=== PATIENT | female | born 1990 | race Caucasian/White ===

== ENCOUNTER 2016-09-20 17:03 | Emergency (ER) | payer BC ==
[2016-09-20 20:01] LABS: BASOPHILS 0.2 % (0-2); HEMATOCRIT 42.4 % (36.0-48.0); HEMOGLOBIN 14.3 g/dL (12-16); IMMATURE GRANULOCYTES 0.2 % (0-5); LYMPHOCYTES 19.3 % (15-50); MCH 31.5 pg (26.0-34.0); MCHC 33.7 g/dL (31.0-37.0); MCV 93.4 fL (80.0-100.0); MEAN PLATELET VOLUME 11.1 fL (7.4-10.4); NEUTROPHILS 71.3 % (40-80); PLATELET COUNT 287 10x3/uL (130-400); RBC 4.54 10x6/uL (4.00-5.40); RDW 13.1 % (11.5-14.5); WBC 13.3 10x3/uL (4.8-10.8)
[2016-09-20 20:08] LABS: HCG SERUM POSITIVE (NEGATIVE)
[2016-09-20 20:19] LABS: APPEARANCE CLOUDY (CLEAR); BILIRUBIN NEGATIVE (NEGATIVE); COLOR YELLOW (YELLOW); GLUCOSE NEGATIVE (NEGATIVE); KETONE NEGATIVE (NEGATIVE); LEUKOCYTE ESTERASE NEGATIVE (NEGATIVE); NITRITE NEGATIVE (NEGATIVE); PROTEIN TRACE mg/dL (NEGATIVE); UROBILINOGEN NORMAL (NORMAL)
[2016-09-20 20:21] LABS: BACTERIA MODERATE /hpf (NONE SEEN); RED CELLS - URINE 0-5 /hpf (0-5)
[2016-09-20 20:26] LABS: ALBUMIN 3.9 g/dL (3.4-5.0); ALKALINE PHOSPHATASE 60 U/L (46-116); ALT (SGPT) 25 U/L (10-68); BILIRUBIN - TOTAL 0.31 mg/dL (0.2-1.3); CALC OSMOLALITY 278 mosm/kg (275-300); CALCIUM 9.5 mg/dL (8.5-10.1); CHLORIDE - SERUM 104 mmol/L (98-107); CREATININE - SERUM 0.9 mg/dL (0.6-1.3); GLUCOSE 102 mg/dL (74-106); POTASSIUM - SERUM 4.1 mmol/L (3.5-5.1); PROTEIN - SERUM 7.2 g/dL (6.4-8.2); SODIUM 140 mmol/L (136-145); UREA NITROGEN 12 mg/dL (7-18); eGFR NON AFRICAN AMERICAN 79 mL/min (90-120)
== END 2016-09-20 22:55 | disposition home or self-care (01) ==
LOC: D.ER 17:03
PROVIDERS: Emergency Medicine
DX: R10.9 Unspecified abdominal pain (principal); R10.32 Left lower quadrant pain; N93.9 Abnormal uterine and vaginal bleeding, unspecified

== ENCOUNTER 2016-10-02 10:46 | Inpatient (IN) | payer MEDICAID ==
[~2016-10-02] VITALS: Ht 182.9 cm; Wt 113.4 kg
[2016-10-02] VITALS (9 sets, daily range): BP systolic 123–155; BP diastolic 78–90; BMI 34.0
[2016-10-02 11:36] LABS: BASOPHILS 0.3 % (0-2); EOSINOPHILS 5.5 % (0-7); HEMATOCRIT 38.8 % (36.0-48.0); IMMATURE GRANULOCYTES 0.1 % (0-5); LYMPHOCYTES 20.9 % (15-50); MCH 31.1 pg (26.0-34.0); MCHC 33.5 g/dL (31.0-37.0); MCV 92.8 fL (80.0-100.0); MEAN PLATELET VOLUME 10.9 fL (7.4-10.4); MONOCYTES 5.7 % (2-11); NEUTROPHILS 67.5 % (40-80); PLATELET COUNT 263 10x3/uL (130-400); RBC 4.18 10x6/uL (4.00-5.40); RDW 13.5 % (11.5-14.5); WBC 7.8 10x3/uL (4.8-10.8)
[2016-10-02 11:49] LABS: HCG SERUM POSITIVE (NEGATIVE)
--- NOTE | 2016-10-02 15:55 | NUR ---
RECEIVED WELL NOURISHED WHITE FEMALE ADULT PATIENT COMPLAINING OF VAGINAL BLEEDING X 6 WEEKS. REPORTS SHE SATURATES 1 PAD PER HOUR FOR LAST 6 WEEKS BUT MORE TODAY. ALERT AND ORIENTED X 4. SKIN WARM DRY AND PINK. BBS = AND CTA. STATES SHE SMOKES 1/2 PKG CIGARETTES DAILY FOR LAST 14 YEARS. ABD SOFT; BOWEL SOUNDS FAINT. STATES SHE HAS BEEN DRINKING ONLY WATER TODAY; LAST WAS A SIP AT 1530 STATED BY PATIENT AND HER MOTHER; NOTIFIED OF SAME. MARIAN. IV 20G ANGIOCATH RIGHT AC INTACT WITH NO SIGNS OF COMPLICATIONS. MOTHER AND BOYFRIEND AT BEDSIDE.
--- NOTE | 2016-10-02 16:00 | NUR ---
DR JIMENEZ ON UNIT. ORDERS RECEIVED.
--- NOTE | 2016-10-02 16:05 | NUR ---
OPERATIVE PERMITS ALREADY SIGNED BY PATIENT IN E.R.
--- NOTE | 2016-10-02 18:00 | NUR ---
LR 1000ML STARTED RIGHT AC WITH NO SIGNS OF COMPLICATIONS AT IV SITE.
--- NOTE | 2016-10-02 18:25 | NUR ---
REMAINS STABLE. TO O.R. PER BED.
--- NOTE | 2016-10-02 20:57 | NUR ---
RECEIVED PT VIA BED FROM POST OPEN LAPAROTOMY PER DR JIMENEZ, PT TO ROOM 1222, VS INITIATED, IV IN RIGHT AC INTACT WITH NO REDNESS OR EDEMA, LR TO PUMP INFUSING AT 125 ML/HR, Baby [employer]end[employer] INC WITH PRIMAPORE DRESSING CDI WITH DRAINAGE NOTED, ICE PACK PLACED, NO VAG BLEEDING NOTED AT THIS TIME, HENRY CATH DRAINING DARK YELLOW URINE, PT ORIENTED TO ROOM, BED IN LOW POSITION, SIDE RAILS X 2, CALL LIGHT IN REACH
--- NOTE | 2016-10-02 21:20 | NUR ---
DILAUDID GAMMA RAY OPERATOR INITIATED, PT INST ON AND VERBALIZES UNDERSTANDING, PT PUSHES BUTTON AT THIS TIME, FAMILY INST TO NOT PUSH BUTTON FOR PT, SCD'S APPLIED AND WORKING PROPERLY, ICE CHIPS PROVIDED
--- NOTE | 2016-10-02 21:45 | NUR ---
PT C/O NAUSEA, ADM ZOFRAN SIVP PER MD ORDERS, SEE EMAR
--- NOTE | 2016-10-02 21:54 | NUR ---
NEW BAG OF LR HUNG INFUSING VIA PUMP AT 125 ML/HR, FAMILY AT BEDSIDE
--- NOTE | 2016-10-02 22:15 | NUR ---
PT RESTING WITH EYES CLOSED, RESP QUIET, NO DISTRESS NOTED, LEFT UNDISTURBED AT THIS TIME, BEDDING PROVIDED TO PTS MOM
--- NOTE | 2016-10-02 22:15 | NUR ---
BEDDING PROVIDED TO FEMALE FAMILY MEMBER
--- NOTE | 2016-10-02 22:38 | NUR ---
IV BEEPING, PT AWAKE, REPORTS BEING COLD, TEMP 97.7, AIR ADJ, WARM BLANKET PROIVDED, PT DENIES FURTHER NEEDS, PT'S MOM AT BEDSIDE
--- NOTE | 2016-10-02 23:30 | NUR ---
S/O AT HOSPITAL INSURANCE REPRESENTATIVE, REQUESTS SOMETHING TO DRINK FOR PT, THIS RN TO ROOM, PT REQUESTED AND SERVED COLA, VS FINISHED, PINK PAD AND BLUE CHUX CHANGED DUE TO IT BEING BUNCHED UP UNDER PT, NO VAG BLEEDING NOTED AT THIS TIME, GIOVANNY PAD PLACED ON, HENRY CATH EMPTIED, PT DENIES NAUSEA, SCD'S CONTINUE ON AND WORKING PROPERLY, PT DENIES FURTHER NEEDS
--- NOTE | 2016-10-03 00:15 | NUR ---
IV BEEPING, PEDRO THOMAS, RN, CASKET INSPECTOR TO ROOM, THIS RN RIGHT BEHIND HER, IV POSITIONAL, PT STRAIGHTENED OUT ARM, IV INFUSING WITH NO DIFFICULTY, PT DENIES FURTHER NEEDS, S/O AT BEDSIDE
--- NOTE | 2016-10-03 00:28 | NUR ---
FOB AT HOME CARE CONSULTANT, REPORTS PT IS A LITTLE HUNGRY, THIS RN TO ROOM, CL OFFERED TO PT, PT OPTED AND SERVED ORANGE POPSICLE, DENIES FURTHER NEEDS
--- NOTE | 2016-10-03 01:00 | NUR ---
FOB AT GAS PLANT SPECIALIST, REPORTS THAT PT HAD FALLEN ASLEEP AND DROPPED HER POPSICLE ON HER GOWN, THIS RN TO ROOM, GOWN CHANGED, PT DENIES FURTHER NEEDS
--- NOTE | 2016-10-03 02:01 | NUR ---
PT RESTING WITH EYES CLOSED, RESP QUIET, NO DISTRESS NOTED, LEFT UNDISTURBED AT THIS TIME, S/O AT BEDSIDE
--- NOTE | 2016-10-03 03:40 | NUR ---
PT RINGS CL. THIS RN TO BEDSIDE. RESTARTED IV PUMP DUE TO IT ALARMING "OCCLUDED." PT ALSO QUESTIONS ABOUT PIV PLACEMENT IN LT HAND STATING "IT FEELS LIKE IT'S NOT IN ANYMORE." ASSESSED SITE, IV NOTED TO BE OUT OF HAND AND HANGING BY THE TAPE. DRIED BLOOD NOTED AROUND SITE, BUT NO ACTIVE BLEEDING. TAPED OFF HAND. PIV TO RT AC PATENT. PT DENIES FURTHER NEEDS.
[2016-10-03 03:43] VITALS: BP 114/72
--- NOTE | 2016-10-03 03:43 | NUR ---
IV PUMP ALARMING. RN TO BEDSIDE. V/S ASSESSED AT THIS TIME. PUMP CLEARED. PT DENIES FURTHER NEEDS AT THIS TIME.
--- NOTE | 2016-10-03 05:00 | NUR ---
PT AWAKE, PUMPS CLEARED, HENRY CATH EMPTIED, FRESH ICE PACK TO ABD, GIOVANNY PAD CHANGED, SCANT VAG BLEEDING NOTED WITH NO CLOTS, PT DENIES FURTHER NEEDS OR PAIN, S/O AT BEDSIDE
[2016-10-03 05:24] LABS: BASOPHILS 0.2 % (0-2); EOSINOPHILS 0.3 % (0-7); HEMATOCRIT 35.4 % (36.0-48.0); HEMOGLOBIN 11.8 g/dL (12-16); IMMATURE GRANULOCYTES 0.2 % (0-5); LYMPHOCYTES 14.7 % (15-50); MCHC 33.3 g/dL (31.0-37.0); MCV 92.9 fL (80.0-100.0); MEAN PLATELET VOLUME 10.6 fL (7.4-10.4); MONOCYTES 6.1 % (2-11); NEUTROPHILS 78.5 % (40-80); PLATELET COUNT 246 10x3/uL (130-400); RBC 3.81 10x6/uL (4.00-5.40); RDW 13.5 % (11.5-14.5)
[2016-10-03 05:33] LABS: WBC 12.3 10x3/uL (4.8-10.8)
--- NOTE | 2016-10-03 05:50 | NUR ---
PT AWAKE, NEW BAG OF LR HUNG IV INFUSING VIA PUMP AT 125 ML/HR, PT INST ON AND DEMONSTRATED INCENTIVE SPIROMETER, ADMITTING HISTORY AND MED REC COMPLETED, PT DENIES NEEDS AT THIS TIME
[2016-10-03] MEDS ORDERED: ACETAMINOPHEN325 MG PO (05:56)
--- NOTE | 2016-10-03 07:00 | NUR ---
SHIFT REPORT TO DAY SHIFT
--- NOTE | 2016-10-03 07:20 | NUR ---
DR JIMENEZ HERE TO SEE PT.
[2016-10-03 07:35] VITALS: BP 124/89
--- NOTE | 2016-10-03 07:38 | NUR ---
ASSESSMENT DONE. PT SITTING UP IN BED EATING REG DIET. FAMILY AT BEDSIDE. BIKINI LINE INCISION WITH BRITTNI- APPEARANCE WNL. LG BANDAIDE AT UMBILICUS. ICE CAP TO ABD.
--- NOTE | 2016-10-03 09:15 | NUR ---
toth cath d/karen post bulb deflated with 600cc urine in bag. iv changed to saline lock.
--- NOTE | 2016-10-03 09:20 | NUR ---
up to bathroom -states feels like might need to void. small amt blood in container- scant urine. donavan care done. tolerated well. pt states that her mom will help with her shower when she gets here.
--- NOTE | 2016-10-03 10:09 | NUR ---
Pt wanting Wheel Chair to get out of room. Wheel chair provided. Asked pt if she was just going around the hospital? "I might go out side" I asked to smoke and pt verblized yes. I instruced she could not go out and smoke, the pt asked why? I instruced the physician would discharge her home and that we are responsible for her while she is still a patient in the hospital. Pt up to wheel chair and attended by male visitor. Gown offered, but pt refused.
--- NOTE | 2016-10-03 10:15 | NUR ---
REQUESTING W/C FOR PT TO MOVE ABOUT HOSPITAL. W/C PROVIDED BY Tatiana ELAINE RN.
--- NOTE | 2016-10-03 10:40 | NUR ---
RINGS CALL LIGHT REQUESTING PAIN MED.
--- NOTE | 2016-10-03 12:11 | NUR ---
UP TO SHOWER- LINENS CHANGED. TOLERATED WELL. PT VOIDED 150CC IN CONTAINER. RATES PAIN A 4 AT THIS TIME. DENIES REQUESTS.
--- NOTE | 2016-10-03 13:05 | NUR ---
PT OUT OF ROOM AT THIS TIME.
[2016-10-03 13:10] VITALS: BP 129/79
[2016-10-03 14:17] VITALS: Ht 182.9 cm; Wt 113.4 kg
--- NOTE | 2016-10-03 15:52 | NUR ---
rings call light- requesting pain medication. co pain incisional area. rates pain a 6 on scale of 0-10. states just got up and voided "alot more than last time". pain med given.
[2016-10-03 17:00] VITALS: BP 133/76
--- NOTE | 2016-10-03 17:09 | NUR ---
AMBULATES BACK TO ROOM. DENIES NEEDS.
--- NOTE | 2016-10-03 19:05 | NUR ---
PT AMB BACK TO ROOM, GAIT STEADY, INFORMED PT THAT I WILL BE IN SHORTLY TO DO ASSESSMENT, PT VERBALIZES UNDERSTANDING, DENIES NEEDS AT THIS TIME, S/O AT SIDE
[2016-10-03 19:45] VITALS: BP 117/62
--- NOTE | 2016-10-03 19:45 | NUR ---
ASSESSMENT PER FLOW SHEET, VS OBTAINED, PT REPORTS SALINE LOCK IS REALLY SORE AND HURTING WHEN BENDING HER ARM, SALINE LOCK REMOVED, TIP INTACT, PRESSURE HELD, BANDAID APPLIED, BIKINI INC WITH BRITTNI CDI WITH NO DRAINAGE NOTED, GIOVANNY PAD OVER INC FOR COMFORT AND MOISTURE CONTROL, PT REPORTS LITE-MOD BLEEDING, PT UP TO BR, GAIT STEADY, VOIDED 250 MLS OF BLOOD TINGED URINE, EMPTIED FROM HAT, PT BACK TO BED, C/O INC BURNING, WILL ADM PAIN MED, S/O AT BEDSIDE
--- NOTE | 2016-10-03 19:59 | NUR ---
ADM NORCO PO PER MD ORDERS, SEE EMAR, PT DENIES FURTHER NEEDS, TRASH REMOVED
--- NOTE | 2016-10-03 20:20 | NUR ---
PT AMB IN PAIZ, GAIT STEADY, S/O AT SIDE
--- NOTE | 2016-10-03 21:19 | NUR ---
PT BACK IN ROOM, IN BED, VISITING WITH FAMILY, C/O RIGHT SHOULDER PAIN, REQUESTS SOMETHING FOR GAS, INFORMED PT THAT I WILL CONTACT DR JIMENEZ, PT VERBALIZES UNDERSTANDING
--- NOTE | 2016-10-03 21:21 | NUR ---
DR JIMENEZ NOTIFIED, REPORT OF PT'S RIGHT SHOULDER PAIN, INFORMED DR JIMENEZ OF VS, LITE-MOD BLEEDING, AND PASSING SMALL FLATUS, ORDERS FOR SIMETHICONE, CBC AND CMP IN AM
--- NOTE | 2016-10-03 21:32 | NUR ---
PT VISITING WITH FAMILY AND FRIENDS, ADM ORTEGA AND BEL PO PER MD ORDERS, INFORMED PT THAT I DID TALK TO DR JIMENEZ, AND THAT HE ORDERED THE SIMETHICONE AND LAB WORK FOR THE AM, PT VERBALIZES UNDERSTANDING, DENIES FURTHER NEEDS
--- NOTE | 2016-10-03 22:30 | NUR ---
PT VISITING WITH MOM, REPORTS "PAIN IS BETTER", PT DENIES NEEDS AT THIS TIME
--- NOTE | 2016-10-03 22:51 | NUR ---
PT AMB OFF UNIT, GAIT STEADY, MOM AT SIDE
--- NOTE | 2016-10-03 23:38 | NUR ---
PT BACK TO ROOM, NO NEEDS VOICED, S/O AT SIDE THIS TIME
[2016-10-04 00:03] VITALS: BP 117/55
--- NOTE | 2016-10-04 00:03 | NUR ---
PT LAYING IN BED, VS OBTAINED, ADM NORCO PO PER MD ORDERS, SEE EMAR, SCD'S PLACED ON AND WORKING PROPERLY, PT REQUESTED AND PROVIDED GIOVANNY PANTIES, SHEET PROVIDED TO S/O, PT DENIES FURTHER NEEDS
--- NOTE | 2016-10-04 01:00 | NUR ---
SHIFT REPORT TO FAITH ROSA RN
--- NOTE | 2016-10-04 01:26 | NUR ---
WENT IN TO REASSESS PTS PAIN AT THIS TIME. PT RESTING QUIETLY WITH EYES CLOSED. RESPIRATIONS EVEN, NON-LABORED. NO ACUTE DISTRESS NOTED AT THIS TIME. BED LOW. PHONE AND CALL LIGHT IN REACH. SRX2.
[2016-10-04 03:35] VITALS: BP 114/63
--- NOTE | 2016-10-04 03:35 | NUR ---
PT RESTING QUIETLY AT THIS TIME WITH EYES CLOSED. AROUSED EASILY. VSS. PT DENIES NEEDS AT THIS TIME. BED LOW. PHONE AND CALL LIGHT IN REACH. SRX2.
--- NOTE | 2016-10-04 04:25 | NUR ---
PT ON CL C/O PAIN OF 7/10 AT THIS TIME. ADMINISTERED NORCO AND MOTRIN PO PER ORDERS. PT DENIES OTHER NEEDS. BED LOW. PHONE AND CALL LIGHT IN REACH. SRX2.
--- NOTE | 2016-10-04 05:20 | NUR ---
REASSESSED PTS PAIN AT THIS TIME. PT RATES PAIN 2/10. DENIES NEEDS. BED LOW. PHONE AND CALL LIGHT IN REACH. SRX2.
--- NOTE | 2016-10-04 06:33 | NUR ---
PT RESTING QUIETLY AT THIS TIME. DENIES NEEDS. BED LOW. PHONE AND CALL LIGHT IN REACH. SRX2.
[2016-10-04 07:04] LABS: BASOPHILS 0.3 % (0-2); EOSINOPHILS 5.4 % (0-7); HEMATOCRIT 34.6 % (36.0-48.0); HEMOGLOBIN 11.4 g/dL (12-16); IMMATURE GRANULOCYTES 0.3 % (0-5); LYMPHOCYTES 27.8 % (15-50); MCH 30.9 pg (26.0-34.0); MCHC 32.9 g/dL (31.0-37.0); MCV 93.8 fL (80.0-100.0); MEAN PLATELET VOLUME 10.9 fL (7.4-10.4); MONOCYTES 9.1 % (2-11); NEUTROPHILS 57.1 % (40-80); PLATELET COUNT 246 10x3/uL (130-400); RBC 3.69 10x6/uL (4.00-5.40); RDW 13.4 % (11.5-14.5)
[2016-10-04 07:21] LABS: ALBUMIN 2.9 g/dL (3.4-5.0); ALKALINE PHOSPHATASE 49 U/L (46-116); ALT (SGPT) 22 U/L (10-68); CALC OSMOLALITY 280 mosm/kg (275-300); CALCIUM 8.4 mg/dL (8.5-10.1); CARBON DIOXIDE 29.1 mmol/L (21.0-32.0); CHLORIDE - SERUM 108 mmol/L (98-107); CREATININE - SERUM 0.8 mg/dL (0.6-1.3); GLUCOSE 103 mg/dL (74-106); POTASSIUM - SERUM 3.6 mmol/L (3.5-5.1); PROTEIN - SERUM 6.1 g/dL (6.4-8.2); SODIUM 142 mmol/L (136-145); UREA NITROGEN 8 mg/dL (7-18); eGFR NON AFRICAN AMERICAN 90 mL/min (90-120)
--- NOTE | 2016-10-04 07:49 | OP ---
PATIENT NAME: JAI GUERIN MEDICAL RECORD: [id number] :86 LOCATION:[id number][id number] ADMISSION DATE:10/02/16 SURGEON: SHASHANK EASON MD DATE OF OPERATION: 10/02/2016 PREOPERATIVE DIAGNOSES: Suspected ectopic . POSTOPERATIVE DIAGNOSES: 1. Hemoperitoneum. 2. Right hematosalpinx/ectopic . PROCEDURE: 1. Attempted laparoscopy. 2. Exploratory laparotomy. 3. Irrigation and evacuation of hemoperitoneum. 4. Right salpingectomy. SURGEON: Shashank Eason MD. ESTIMATED BLOOD LOSS: 700 mL of old clot and blood in the pelvis and 200 cc of active bleeding during the case. FINDINGS: 1. Extensive hemoperitoneum. 2. Dilated right fallopian tube with extensive compacted clot and debris in the posterior cul-de-sac. COMPLICATIONS: None apparent. SPECIMENS: Products of conception and right fallopian tube. DESCRIPTION OF PROCEDURE: The patient was taken to the operating room where general anesthesia was achieved without difficulty. The patient was then prepped and draped in normal sterile fashion in the dorsal lithotomy position in the [facility]. A Saucedo catheter had been placed. At this point, a 5-mm skin incision was made in the umbilicus. The 5-mm bladeless trocar was then used in an attempt to reach the intraperitoneal space. The patient's abdominal wall was found to be very deep and 150 mm port was used. The port made it to the peritoneal sac and visualization was difficult during entry due to the hemoperitoneum. It was felt unsafe at this time to continue with any further dissection using the laparoscope. At this point, the laparoscopic trocar was then removed and a Pfannenstiel skin incision was made, extended downward to the underlying subcutaneous fat to level of the fascia, which was then nicked in the midline with a scalpel and excised bilaterally using the Wood scissors. The superior and inferior aspects of the fascial incision were grasped with Jemma clamps times 2, tented upward, and sharply dissected from the underlying rectus muscle using the Wood scissors and Bovie cautery. The rectus muscles were then bluntly in the midline and the peritoneum entered using the Metzenbaum scissors at the superior aspect of the incision. The peritoneal incision was extended using the Metzenbaum scissors. At this point, a very obvious hemoperitoneum was noted. Copious irrigation was used to remove approximately 700 cc of fresh blood in the abdomen and pelvis. A significant amount of clotted fibrinous material was found on the posterior cul-de-sac, which was then removed and irrigated thoroughly. Attention was then turned to the uterus and the bowel was packed gently. A Lazara clamp was used to grasp the right round OPERATIVE REPORT [id number] DISPENSA,JAI R ligament and the uterus was elevated gently. Right fallopian tube was found to be dense and dilated all the way to the cornua. Several areas were noted to be bleeding and bleeding was noted from the distal end of the tube. At this point, several defects were made in the mesosalpinx and these were clamped with curved Michelle clamps and the tube was sequentially removed from the mesosalpinx and the clamps were oversewn using 0 Vicryl. The tube was then transected near the cornua and suture ligated using 0 Vicryl. The mesosalpinx defects were noted to be hemostatic. More irrigation was performed and more clots removed from the posterior cul-de-sac. No tubal was identified. The lap sponges were removed. FloSeal was placed on the surgical sites. Counts were correct times 2. The fascia was then repaired with 0 loop PDS times 1 and the skin repaired with dong. The patient tolerated the procedure well, transferred to postanesthesia recovery stable without incident. TRANSINT:[id number] Voice Confirmation ID: [id number] DOCUMENT ID: [id number] SHASHANK EASON MD at 0749 CC: [id number] DICTATION DATE: 10/02/162055 EPIC DIRECTOR: 10/03/16228 ADM IN [facility] [address] [place] [address]
--- NOTE | 2016-10-04 07:57 | NUR ---
RECEIVED IN BED. AWAKE. REQUESTING TO GO HOME TODAY. STATES BLEEDING HAS IMPROVED. ABD SOFT. LUNGS CLEAR BILAT TO AUSCULTATION. +BS X4 QUAD.
[2016-10-04 07:59] VITALS: BP 125/84
--- NOTE | 2016-10-04 08:30 | NUR ---
D/C INSTRUCTIONS GIVEN AND EXPLAINED TO PT. MEDS REVIEWED. FOLLOW-UP APPT MADE WITH DR JIMENEZ FOR 10/08/2016 AT 1110. PT TEACHING FOR ECTOPIC PREG. EXIT HOSP WITH W/C PER SIG OTHER. PT DID NOT WNAT TO WAIT FOR NURSE TO TAKE HER.
== END 2016-10-04 08:30 | disposition home or self-care (01) | DRG 777 ==
LOC: D.ER 10:46 → D.WS 16:21
PROVIDERS: Family Medicine; ADMIT Obstetrics & Gynecology
PROC: 0UT50ZZ Resection of Right Fallopian Tube, Open Approach (ICD-10-PCS; 2016-10-02)
PROC: 10T20ZZ Resection of Products of Conception, Ectopic, Open Approach (ICD-10-PCS; 2016-10-02)
PROC: 0U950ZZ Drainage of Right Fallopian Tube, Open Approach (ICD-10-PCS; principal; 2016-10-02 16:00)
DX: O00.10 Tubal pregnancy without intrauterine pregnancy (principal); K66.1 Hemoperitoneum; O99.331 Smoking (tobacco) complicating pregnancy, first trimester; O26.891 Other specified pregnancy related conditions, first trimester

== ENCOUNTER 2017-04-03 19:52 | Emergency (ER) | payer MEDICAID ==
[2016-10-03 14:17] VITALS: BMI 33.9
[~2017-04-03 19:52] MED LIST: ACETAMINOPHEN325 MG PO
[2017-04-03 20:48] LABS: BASOPHILS 0.3 % (0-2); EOSINOPHILS 5.4 % (0-7); HEMATOCRIT 44.1 % (36.0-48.0); HEMOGLOBIN 14.7 g/dL (12-16); IMMATURE GRANULOCYTES 0.4 % (0-5); LYMPHOCYTES 17.6 % (15-50); MCH 29.5 pg (26.0-34.0); MCHC 33.3 g/dL (31.0-37.0); MCV 88.6 fL (80.0-100.0); MEAN PLATELET VOLUME 10.9 fL (7.4-10.4); MONOCYTES 4.7 % (2-11); NEUTROPHILS 71.6 % (40-80); RBC 4.98 10x6/uL (4.00-5.40); RDW 14.6 % (11.5-14.5); WBC 12.6 10x3/uL (4.8-10.8)
[2017-04-03 20:49] LABS: PLATELET COUNT 317 10x3/uL (130-400)
[2017-04-03 20:51] LABS: APPEARANCE HAZY (CLEAR); BILIRUBIN NEGATIVE (NEGATIVE); COLOR YELLOW (YELLOW); GLUCOSE NEGATIVE (NEGATIVE); KETONE NEGATIVE (NEGATIVE); NITRITE NEGATIVE (NEGATIVE); PROTEIN TRACE mg/dL (NEGATIVE); UROBILINOGEN NORMAL (NORMAL)
[2017-04-03 20:54] LABS: BACTERIA MODERATE /hpf (NONE SEEN)
[2017-04-03 20:56] LABS: HCG URINE NEGATIVE (NEGATIVE)
== END 2017-04-03 22:59 | disposition home or self-care (01) ==
LOC: D.ER 19:52
PROVIDERS: Emergency Medicine
DX: R10.12 Left upper quadrant pain (principal); N39.0 Urinary tract infection, site not specified; F17.200 Nicotine dependence, unspecified, uncomplicated